=== PATIENT | female | born 1960 | race Caucasian/White ===

== ENCOUNTER 2017-12-18 18:35 | Emergency (ER) | payer OTHER ==
[~2017-12-18] VITALS: Ht 160 cm; Wt 67.6 kg
[2017-12-18 20:26] VITALS: BP 124/80
== END 2017-12-18 20:26 | disposition home or self-care (01) ==
LOC: ED 18:35
DX: L50.0 Allergic urticaria (principal); I10 Essential (primary) hypertension
CPT/HCPCS: J7512